=== PATIENT | male | born 1960 | race Two or more races ===

== ENCOUNTER 2021-03-01 20:22 | Emergency (ER) | payer OTHER ==
[~2021-03-01] VITALS: Ht 182.9 cm; Wt 86.2 kg
[2021-03-01] MEDS ORDERED: ODEFSEY TABLET1 EACH (20:35)
[2021-03-01] MEDS ORDERED: PREZCOBIX 8001 EACH (20:37)
[2021-03-01] MEDS ORDERED: TRICOR48 MG (20:37)
[2021-03-02] MEDS ORDERED: INTESTINEX680 M1 PO (00:24)
== END 2021-03-02 00:40 | disposition home or self-care (01) ==
LOC: ER 20:22
DX: R19.7 Diarrhea, unspecified (principal); Z11.52 Encounter for screening for COVID-19

== ENCOUNTER 2021-03-03 10:00 | Emergency (ER) | payer OTHER ==
[~2021-03-03] VITALS: Ht 182.9 cm; Wt 86.2 kg
[~2021-03-03 10:00] MED LIST: INTESTINEX680 M1 PO; ODEFSEY TABLET1 EACH; PREZCOBIX 8001 EACH; TRICOR48 MG
== END 2021-03-03 19:27 | disposition home or self-care (01) ==
LOC: ER 10:00
DX: E86.0 Dehydration (principal)